=== PATIENT | female | born 1960 | race Hispanic/Latino ===

== ENCOUNTER 2016-04-17 11:50 | Outpatient (CLI) | payer MEDICARE ==
--- NOTE | 2016-04-17 13:26 | XRay Report ---
LUMBAR SPINE RADIOGRAPHS: INDICATION: Low back pain. COMPARISON: None similar at this institution. FINDINGS: AP, oblique and lateral lumbar spine radiographs, 7 images, demonstrate slight levocurvature apex about L3. Multilevel degenerative spurring, least affecting L3. Mid to lower lumbar facet arthropathy. No evidence of a pars defect. Grossly preserved disc heights. Aortic atherosclerotic calcifications. Clear visualized lung bases. Nonobstructive bowel gas pattern. Intact SI joints. CONCLUSION: Lumbar spondylosis without acute radiographic abnormality, as described. Please correlate. Thank you for the opportunity to participate in this patient's care.
== END 2016-04-17 11:51 | disposition home or self-care (01) ==
LOC: XRAY 11:50
PROVIDERS: ATTEND Pain Medicine Interventional Pain Medicine
DX: M47.896 Other spondylosis, lumbar region (principal); I70.0 Atherosclerosis of aorta; M12.88 Other specific arthropathies, not elsewhere classified, other specified site
CPT/HCPCS: 72110

== ENCOUNTER 2017-12-02 14:53 | Emergency (ER) | payer MEDICARE ==
[2017-12-02 15:08] VITALS: BP 164/80
--- NOTE | 2017-12-02 17:15 | Emergency Department Report ---
HPI - General Chief Complaint: Extremity Injury, Lower Time Seen by Provider: 12/02/17 17:01 - HPI HPI: 57-year-old female presents to the emergency department with complaint of bilateral leg pain that is acute on chronic. The patient has a history of arthritis, fibromyalgia and says that she is getting surgery done on December 19 by [facility] for a vein in the back of her right leg. She is requesting a refill of her pain medication as she ran out a few days ago. She gets tramadol 50 mg from her primary care physician, Yasmani Boucher, as well as her orthopedist, Dr. Jang. Patient also has a history of COPD, diabetes, hyperlipidemia, hypertension, hepatitis B and has had a previous history of vascular occlusions. ED Past Medical Hx - Past Medical History Hx Hypertension: Yes Hx Heart Attack/AMI: (increased cholesterol) Hx Diabetes: Yes Hx Liver Disease: Yes (Hep B; Increased LFTs) Hx Renal Disease: No Hx Arthritis: Yes Hx Seizures: No Hx COPD: Yes Hx HIV: No Additional medical history: high chol,fibromyalgia,carpel tunnel,vascular occlusions BLL - Surgical History Past Surgical History?: No - Social History Smoking Status: Current Every Day Smoker Substance Use Type: None - Medications Home Medications: Home Medications Medication Instructions Recorded Confirmed Last Taken Type Gabapentin [Neurontin] 400 mg PO TID 08/24/13 06/04/14 05/31/14 History Lisinopril [Zestril] 1 tab PO DAILY 08/24/13 06/04/14 05/31/14 History Albuterol Sulfate [Albuterol 0.63% 3 ml INHALATION PRN PRN 05/26/14 06/04/14 Unknown History NEBS] Cyclobenzaprine [Flexeril 10 MG 5 mg PO TID 05/26/14 06/04/14 05/31/14 History TAB] Insulin Detemir [Levemir Flextouch] 64 units SC QHS 05/26/14 06/04/14 05/31/14 History Insulin Lispro [HumaLOG VIAL] 20 units SC TID 05/26/14 06/04/14 05/31/14 History Lisinopril 40 mg PO DAILY 05/26/14 06/04/14 Unknown History Lovastatin [Altoprev] 1 tab PO DAILY 05/26/14 06/04/14 Unknown History Ranitidine HCl [Zantac 75 MG TAB] 300 mg PO DAILY 05/26/14 06/04/14 05/31/14 History traMADol [Ultram 50 MG tab] 1 tab PO TID #9 tablet 12/02/17 Unknown Rx ED Review of Systems ROS: Stated complaint: PAIN IN LEGS Other details as noted in HPI Comment: All other systems reviewed and negative Constitutional: denies: chills, fever Eyes: denies: eye pain, eye discharge, vision change ENT: denies: ear pain, throat pain Respiratory: denies: cough, shortness of breath, wheezing Cardiovascular: denies: chest pain, palpitations Gastrointestinal: denies: abdominal pain, nausea, diarrhea Genitourinary: denies: urgency, dysuria, discharge Musculoskeletal: arthralgia, myalgia Skin: denies: rash, lesions Neurological: denies: headache, weakness, paresthesias Physical Exam - Physical Exam Vital Signs: Vital Signs 12/02/17 15:04 Temperature 98.9 F Pulse Rate 102 H Respiratory 18 Rate Blood Pressure 164/80 O2 Sat by Pulse 96 Oximetry Physical Exam: GENERAL: The patient is well-developed well-nourished. HENT: Normocephalic. Atraumatic. Patient has moist mucous membranes. EYES: Extraocular motions are intact. NECK: Supple. Trachea is midline. CHEST/LUNGS: Clear to auscultation. There is no respiratory distress noted. HEART/CARDIOVASCULAR: Regular. There is no tachycardia. There is no murmur. ABDOMEN: Abdomen is soft, nontender. Patient has normal bowel sounds. There is no abdominal distention. SKIN: Skin is warm and dry. NEURO: The patient is awake, alert, and oriented. The patient is cooperative. The patient has no focal neurologic deficits. The patient has normal speech. MUSCULOSKELETAL: There is no tenderness to palpation of the extremities but the patient has some aching discomforts. There is a palpable dorsalis pedis pulse bilaterally. Capillary refill less than 2 seconds. There is no limitation range of motion. ED Course Vital Signs 12/02/17 15:04 Temperature 98.9 F Pulse Rate 102 H Respiratory 18 Rate Blood Pressure 164/80 O2 Sat by Pulse 96 Oximetry ED Medical Decision Making - Medical Decision Making The patient presents requesting some pain medication for some chronic bilateral lower extremity pain. She also has a history of fibromyalgia, osteoarthritis but has some type of vascular surgery scheduled for December 19 with [facility]. The patient has palpable distal pulses, capillary refill less than 3 seconds. She says that it is the same type of pain that she deals with chronically but she ran out of her pain medications. She was unable to contact any of her physicians as it has been the weekend. Patient says that she is planning on talking to Dr. Yasmani Boucher tomorrow regarding her pain control and that she is scheduled and/or will be referred for a lead painter. The patient is also been instructed to follow up with her vascular surgeon. Vital signs stable throughout her ED course. The patient checks her blood sugar and says that it has been controlled. She is afebrile. The [employer] prescription monitoring system was checked and the patient does have a history of feeling tramadol just about every month but has not filled any in November. The patient was given a maximum of a 3 day supply and instructed to follow-up with her physicians. She will return to the ER with any worsening of her symptoms or any acute distress. Critical Care Time: No Critical care attestation.: If time is entered above; I have spent that time in minutes in the direct care of this critically ill patient, excluding procedure time. ED Disposition Clinical Impression: Encounter for medication refill Chronic leg pain Qualifiers: Laterality: bilateral Qualified Code(s): M79.604 - Pain in right leg Hypertension Qualifiers: Hypertension type: essential hypertension Qualified Code(s): I10 - Essential ( primary) hypertension Disposition: TO HOME OR SELFCARE Is pt being admited?: No Condition: Stable Instructions: Hypertension (ED) Additional Instructions: I have given you a small refill of your pain medication until you're able to get an appointment with your primary care physician and your vascular physician in the next 1-2 days without fail. Return to the emergency Department with any worsening of your symptoms or with any acute distress. Prescriptions: traMADol [Ultram 50 MG tab] 1 tab PO TID #9 tablet Referrals: YASMANI BOUCHER III, ROCIO-BC [Referring] - [facility] [employer] [facility] [Provider Group] - [facility] Time of Disposition: 17:23
== END 2017-12-02 17:34 | disposition home or self-care (01) ==
LOC: ED 14:53
DX: G89.29 Other chronic pain (principal); M79.604 Pain in right leg; M79.605 Pain in left leg; Z76.0 Encounter for issue of repeat prescription; I10 Essential (primary) hypertension; M19.90 Unspecified osteoarthritis, unspecified site; J44.9 Chronic obstructive pulmonary disease, unspecified; F17.200 Nicotine dependence, unspecified, uncomplicated; E78.00 Pure hypercholesterolemia, unspecified; E11.9 Type 2 diabetes mellitus without complications
CPT/HCPCS: 99282

== ENCOUNTER 2017-12-08 21:39 | Emergency (ER) | payer MEDICARE ==
[2017-12-09] MEDS ORDERED: KETAMINE HCL IV ONE (00:19)
--- NOTE | 2017-12-09 00:19 | Emergency Department Report ---
ED General Adult HPI - General Chief complaint: Pain General Stated complaint: BODY PAIN Time Seen by Provider: 12/09/17 00:03 Source: patient, RN notes reviewed, old records reviewed Mode of arrival: Ambulatory Limitations: No Limitations - History of Present Illness Initial comments: This is a 57-year-old female who is not known to this provider previously, with a past medical history of fibromyalgia, hypertension, high cholesterol and neuropathic pain. Patient reports that she had an outpatient pain specialist, who had dismissed the patient. She is currently looking for a new pain specialist. She presents to the ER with her complaint of typical fibromyalgia pain in her bilateral paracervical muscles and trapezius, and right lower extremity neuropathic pain. This pain is going on for the past 4 days. It is sharp, burning, achy, the right lower extremity pain radiates distally, the trapezius pain and neck pain did not radiate anywhere. She denies bladder or bowel retention and incontinence, saddle anesthesia. She denies severe headache , chest pain, abdominal pain, shortness of breath. -: Gradual Location: neck, back, right, lower extremity Radiation: extremity Quality: burning Consistency: other Improves with: other Worsens with: other Associated Symptoms: denies: confusion, chest pain, cough, diaphoresis, fever/ chills, headaches, loss of appetite, malaise, nausea/vomiting, rash, seizure, shortness of breath, syncope, weakness - Related Data Home Medications Medication Instructions Recorded Confirmed Last Taken Gabapentin [Neurontin] 400 mg PO TID 08/24/13 06/04/14 05/31/14 Lisinopril [Zestril] 1 tab PO DAILY 08/24/13 06/04/14 05/31/14 Albuterol Sulfate [Albuterol 0.63% 3 ml INHALATION PRN PRN 05/26/14 06/04/14 Unknown NEBS] Cyclobenzaprine [Flexeril 10 MG 5 mg PO TID 05/26/14 06/04/14 05/31/14 TAB] Insulin Detemir [Levemir Flextouch] 64 units SC QHS 05/26/14 06/04/14 05/31/14 Insulin Lispro [HumaLOG VIAL] 20 units SC TID 05/26/14 06/04/14 05/31/14 Lisinopril 40 mg PO DAILY 05/26/14 06/04/14 Unknown Lovastatin [Altoprev] 1 tab PO DAILY 05/26/14 06/04/14 Unknown Ranitidine HCl [Zantac 75 MG TAB] 300 mg PO DAILY 05/26/14 06/04/14 05/31/14 Previous Rx's Medication Instructions Recorded Last Taken Type traMADol [Ultram 50 MG tab] 1 tab PO TID #9 tablet 12/02/17 Unknown Rx Lidocaine [Lidoderm] 1 each TP QDAY #5 adh..patch 12/09/17 Unknown Rx traMADol [Ultram 50 MG tab] 50 mg PO Q6HR PRN #10 tablet 12/09/17 Unknown Rx Allergies Allergy/AdvReac Type Severity Reaction Status Date / Time No Known Allergies Allergy Unverified 08/24/13 12:47 ED Review of Systems ROS: Stated complaint: BODY PAIN Other details as noted in HPI Constitutional: denies: fever Respiratory: denies: cough, SOB with exertion Cardiovascular: denies: chest pain Gastrointestinal: denies: abdominal pain, vomiting Genitourinary: denies: urgency, dysuria Musculoskeletal: back pain, arthralgia, myalgia Skin: denies: lesions Neurological: denies: weakness, numbness ED Past Medical Hx - Past Medical History Hx Hypertension: Yes Hx Heart Attack/AMI: (increased cholesterol) Hx Diabetes: Yes Hx Liver Disease: Yes (Hep B; Increased LFTs) Hx Renal Disease: No Hx Arthritis: Yes Hx Seizures: No Hx COPD: Yes Hx HIV: No Additional medical history: high chol,fibromyalgia,carpel tunnel,vascular occlusions BLL, Neuropathy - Surgical History Past Surgical History?: No - Social History Smoking Status: Current Every Day Smoker Substance Use Type: None - Medications Home Medications: Home Medications Medication Instructions Recorded Confirmed Last Taken Type Gabapentin [Neurontin] 400 mg PO TID 08/24/13 06/04/14 05/31/14 History Lisinopril [Zestril] 1 tab PO DAILY 08/24/13 06/04/14 05/31/14 History Albuterol Sulfate [Albuterol 0.63% 3 ml INHALATION PRN PRN 05/26/14 06/04/14 Unknown History NEBS] Cyclobenzaprine [Flexeril 10 MG 5 mg PO TID 05/26/14 06/04/14 05/31/14 History TAB] Insulin Detemir [Levemir Flextouch] 64 units SC QHS 05/26/14 06/04/14 05/31/14 History Insulin Lispro [HumaLOG VIAL] 20 units SC TID 05/26/14 06/04/14 05/31/14 History Lisinopril 40 mg PO DAILY 05/26/14 06/04/14 Unknown History Lovastatin [Altoprev] 1 tab PO DAILY 05/26/14 06/04/14 Unknown History Ranitidine HCl [Zantac 75 MG TAB] 300 mg PO DAILY 05/26/14 06/04/14 05/31/14 History traMADol [Ultram 50 MG tab] 1 tab PO TID #9 tablet 12/02/17 Unknown Rx Lidocaine [Lidoderm] 1 each TP QDAY #5 adh..patch 12/09/17 Unknown Rx traMADol [Ultram 50 MG tab] 50 mg PO Q6HR PRN #10 tablet 12/09/17 Unknown Rx ED Physical Exam - General Limitations: No Limitations General appearance: alert, in no apparent distress, obese - Head Head exam: Present: atraumatic, normocephalic - Eye Eye exam: Present: normal appearance, EOMI. Absent: nystagmus - ENT ENT exam: Present: normal exam, normal orophraynx, mucous membranes moist, normal external ear exam - Neck Neck exam: Present: normal inspection, full ROM, other (there is no midline cervical spine tenderness. There is no redness, pus or streaking. There is reproducible trapezius tenderness.). Absent: tenderness, meningismus - Respiratory Respiratory exam: Present: normal lung sounds bilaterally. Absent: respiratory distress - Cardiovascular Cardiovascular Exam: Present: regular rate, normal rhythm, normal heart sounds. Absent: bradycardia, tachycardia, irregular rhythm, systolic murmur, diastolic murmur, rubs, gallop - GI/Abdominal GI/Abdominal exam: Present: soft, normal bowel sounds. Absent: distended, tenderness, guarding, rebound, rigid, pulsatile mass - Extremities Exam Extremities exam: Present: normal inspection (chronic venous stasis hyperpigmentation noted in the lower extremities), full ROM, other (2+ pulses noted in the bilateral upper, lower extremities. Compartments soft. No long bony tenderness. The pelvis is stable.). Absent: tenderness, pedal edema, joint swelling, calf tenderness - Back Exam Back exam: Present: normal inspection, full ROM, paraspinal tenderness. Absent : tenderness, CVA tenderness (R), vertebral tenderness - Neurological Exam Neurological exam: Present: alert, oriented X3, CN II-XII intact, normal gait, other (Extraocular movements intact. Tongue midline. No facial droop. Facial sensation intact to light touch in the V1, V2, V3 distribution bilaterally. 5 and 5 strength in 4 extremities.. Sensation is intact to light touch in 4 extremities.). Absent: motor sensory deficit - Psychiatric Psychiatric exam: Present: normal affect, normal mood - Skin Skin exam: Present: warm, dry, intact, normal color. Absent: rash ED Course Vital Signs 12/08/17 12/08/17 12/09/17 22:56 23:24 00:28 Temperature 98.9 F 98.9 F Pulse Rate 80 80 Respiratory 16 20 12 Rate Blood Pressure 186/76 177/79 O2 Sat by Pulse 97 97 Oximetry 12/09/17 00:31 Temperature Pulse Rate 79 Respiratory 20 Rate Blood Pressure 175/74 O2 Sat by Pulse 98 Oximetry ED Medical Decision Making - Lab Data Vital Signs 12/08/17 12/08/17 12/09/17 22:56 23:24 00:28 Temperature 98.9 F 98.9 F Pulse Rate 80 80 Respiratory 16 20 12 Rate Blood Pressure 186/76 177/79 O2 Sat by Pulse 97 97 Oximetry 12/09/17 00:31 Temperature Pulse Rate 79 Respiratory 20 Rate Blood Pressure 175/74 O2 Sat by Pulse 98 Oximetry - Medical Decision Making Differential diagnosis, including not limited to: Neuropathic pain, fibromyalgia pain, medication refill Assessment and plan: 57-year-old female with acute on chronic pain syndrome. Patient is afebrile with reassuring vital signs with the exception of elevated blood pressure. This is not acutely symptomatic; please reference the [employer] clinical policy on elevated blood pressure/ hypertension. Patient is given ketamine, 0.3 mg/kg IV as a single pain dose for breakthrough neuropathic and fibromyalgia pain. This improved her symptoms. Patient reported that she has been on 20 years of tramadol. I will refill a small quantity of patient's tramadol, but patient was informed about risk of possible breakthrough seizure. Patient will also be given a Lidoderm patch prescription. There does not appear to be an emergent medical condition at this time, the patient is medically suitable to follow up with outpatient primary care doctor or pain specialist. Critical care attestation.: If time is entered above; I have spent that time in minutes in the direct care of this critically ill patient, excluding procedure time. ED Disposition Clinical Impression: Chronic leg pain, Encounter for medication refill Disposition: TO HOME OR SELFCARE Is pt being admited?: No Does the pt Need Aspirin: No Condition: Stable Additional Instructions: Take medications as directed. Follow-up with a primary care doctor or pain specialist within the next month. Please note that blood pressure was elevated. This should be followed by a primary care doctor within the recommended timeframe. Long-term complications of hypertension and elevated blood pressure include stroke, heart attack disability, paralysis, loss of quality of life. Return to the ER right away with new pain, worsened pain, migration of pain, projectile vomiting, change in mental status, confusion, inability to tolerate liquid feedings. Prescriptions: Lidocaine [Lidoderm] 1 each TP QDAY #5 adh..patch traMADol [Ultram 50 MG tab] 50 mg PO Q6HR PRN #10 tablet PRN Reason: Pain Referrals: PRIMARY MD BRANDY [Primary Care Provider] - 3-5 Days LOUISE SALVADOR MD [Staff Physician] - 3-5 Days [facility] [Provider Group] - 3-5 Days
[2017-12-09 00:38] VITALS: BP 175/74
== END 2017-12-09 01:13 | disposition home or self-care (01) ==
LOC: ED 21:39
DX: M79.7 Fibromyalgia (principal); Z76.0 Encounter for issue of repeat prescription; I10 Essential (primary) hypertension; E78.00 Pure hypercholesterolemia, unspecified; E11.40 Type 2 diabetes mellitus with diabetic neuropathy, unspecified; F17.200 Nicotine dependence, unspecified, uncomplicated; Z79.4 Long term (current) use of insulin; Z86.19 Personal history of other infectious and parasitic diseases
CPT/HCPCS: 99283

== ENCOUNTER 2017-12-16 18:39 | Emergency (ER) | payer MEDICARE ==
[2017-12-16 18:59] VITALS: BP 148/58
[2017-12-16] MEDS ORDERED: ULTRAM PO ONE (23:18)
--- NOTE | 2017-12-16 23:25 | Emergency Department Report ---
ED Lower Extremity HPI - General Chief Complaint: Extremity Problem,Nontraumatic Stated Complaint: LEG PAIN Time Seen by Provider: 12/16/17 22:57 Source: patient Mode of arrival: Ambulatory Limitations: No Limitations - History of Present Illness Initial Comments: pt is a 57 y/o w/f with hx of peripheral neuropathy and PVD scheduled for Fempop in 4 days states is out of neurontin and pain medication rx for leg pt denies new fall injury or trauma no selling no defomity no sob no calf tendereness pt out of medication since 4 days Complaint: leg injury Onset/Timin -: days(s) Injury: Leg: Right Type of Injury: other Place: home Severity: moderate Severity scale (0 -10): 4 Improves With: NSAID Worsens With: nothing Context: other (pvd ) Associated Symptoms: ambulatory. denies: snap/pop sensation, swelling, numbness , tingling, unable to bear weight, able to partially bear weight - Related Data Home Medications Medication Instructions Recorded Confirmed Last Taken Gabapentin [Neurontin] 400 mg PO TID 08/24/13 06/04/14 05/31/14 Lisinopril [Zestril] 1 tab PO DAILY 08/24/13 06/04/14 05/31/14 Albuterol Sulfate [Albuterol 0.63% 3 ml INHALATION PRN PRN 05/26/14 06/04/14 Unknown NEBS] Cyclobenzaprine [Flexeril 10 MG 5 mg PO TID 05/26/14 06/04/14 05/31/14 TAB] Insulin Detemir [Levemir Flextouch] 64 units SC QHS 05/26/14 06/04/14 05/31/14 Insulin Lispro [HumaLOG VIAL] 20 units SC TID 05/26/14 06/04/14 05/31/14 Lisinopril 40 mg PO DAILY 05/26/14 06/04/14 Unknown Lovastatin [Altoprev] 1 tab PO DAILY 05/26/14 06/04/14 Unknown Ranitidine HCl [Zantac 75 MG TAB] 300 mg PO DAILY 05/26/14 06/04/14 05/31/14 Previous Rx's Medication Instructions Recorded Last Taken Type traMADol [Ultram 50 MG tab] 1 tab PO TID #9 tablet 12/02/17 Unknown Rx Lidocaine [Lidoderm] 1 each TP QDAY #5 adh..patch 12/09/17 Unknown Rx traMADol [Ultram 50 MG tab] 50 mg PO Q6HR PRN #10 tablet 12/09/17 Unknown Rx Gabapentin [Neurontin] 600 mg PO Q8H #90 tablet 12/16/17 Unknown Rx traMADol [Ultram 50 MG tab] 50 mg PO Q6HR PRN #12 tablet 12/16/17 Unknown Rx Allergies Allergy/AdvReac Type Severity Reaction Status Date / Time No Known Allergies Allergy Unverified 08/24/13 12:47 ED Review of Systems ROS: Stated complaint: LEG PAIN Other details as noted in HPI Constitutional: denies: chills, fever Eyes: denies: eye pain, eye discharge, vision change ENT: denies: ear pain, throat pain Respiratory: denies: cough, shortness of breath, wheezing Cardiovascular: denies: chest pain, palpitations Endocrine: no symptoms reported Gastrointestinal: denies: abdominal pain, nausea, diarrhea Genitourinary: denies: urgency, dysuria, discharge Musculoskeletal: arthralgia, myalgia Skin: denies: rash, lesions Neurological: denies: headache, weakness, paresthesias Psychiatric: denies: anxiety, depression Hematological/Lymphatic: denies: easy bleeding, easy bruising ED Past Medical Hx - Past Medical History Hx Hypertension: Yes Hx Heart Attack/AMI: (increased cholesterol) Hx Diabetes: Yes Hx Liver Disease: Yes (Hep B; Increased LFTs) Hx Renal Disease: No Hx Arthritis: Yes Hx Seizures: No Hx COPD: Yes Hx HIV: No Additional medical history: high chol,fibromyalgia,carpel tunnel,vascular occlusions BLL, Neuropathy - Surgical History Hx Appendectomy: No - Social History Smoking Status: Never Smoker Substance Use Type: Alcohol - Medications Home Medications: Home Medications Medication Instructions Recorded Confirmed Last Taken Type Gabapentin [Neurontin] 400 mg PO TID 08/24/13 06/04/14 05/31/14 History Lisinopril [Zestril] 1 tab PO DAILY 08/24/13 06/04/14 05/31/14 History Albuterol Sulfate [Albuterol 0.63% 3 ml INHALATION PRN PRN 05/26/14 06/04/14 Unknown History NEBS] Cyclobenzaprine [Flexeril 10 MG 5 mg PO TID 05/26/14 06/04/14 05/31/14 History TAB] Insulin Detemir [Levemir Flextouch] 64 units SC QHS 05/26/14 06/04/14 05/31/14 History Insulin Lispro [HumaLOG VIAL] 20 units SC TID 05/26/14 06/04/14 05/31/14 History Lisinopril 40 mg PO DAILY 05/26/14 06/04/14 Unknown History Lovastatin [Altoprev] 1 tab PO DAILY 05/26/14 06/04/14 Unknown History Ranitidine HCl [Zantac 75 MG TAB] 300 mg PO DAILY 05/26/14 06/04/14 05/31/14 History traMADol [Ultram 50 MG tab] 1 tab PO TID #9 tablet 12/02/17 Unknown Rx Lidocaine [Lidoderm] 1 each TP QDAY #5 adh..patch 12/09/17 Unknown Rx traMADol [Ultram 50 MG tab] 50 mg PO Q6HR PRN #10 tablet 12/09/17 Unknown Rx Gabapentin [Neurontin] 600 mg PO Q8H #90 tablet 12/16/17 Unknown Rx traMADol [Ultram 50 MG tab] 50 mg PO Q6HR PRN #12 tablet 12/16/17 Unknown Rx ED Physical Exam - General Limitations: No Limitations General appearance: alert, in no apparent distress - Head Head exam: Present: atraumatic, normocephalic - Eye Eye exam: Present: normal appearance - ENT ENT exam: Present: mucous membranes moist - Neck Neck exam: Present: normal inspection - Respiratory Respiratory exam: Present: normal lung sounds bilaterally. Absent: respiratory distress - Cardiovascular Cardiovascular Exam: Present: regular rate, normal rhythm. Absent: systolic murmur, diastolic murmur, rubs, gallop - GI/Abdominal GI/Abdominal exam: Present: soft, normal bowel sounds - Rectal Rectal exam: Present: deferred - Extremities Exam Extremities exam: Present: tenderness, normal capillary refill. Absent: pedal edema, joint swelling, calf tenderness - Expanded Lower Extremity Exam Left Lower Leg exam: Present: tenderness (veicose vein no calf tenderness , neg homans sign no pain with dorsoflexion ). Absent: swelling, abrasion, laceration , ecchymosis, deformity, crepidus, dislocation, erythema, palpable cord, Mayte' s sign Ankle exam: Present: normal inspection, full ROM Foot/Toe exam: Present: normal inspection, full ROM Neuro vascular tendon exam: Present: no vascular compromise, pulse deficit Gait: Positive: observed and normal - Back Exam Back exam: Present: normal inspection - Neurological Exam Neurological exam: Present: alert, oriented X3 - Psychiatric Psychiatric exam: Present: normal affect - Skin Skin exam: Present: warm, dry, intact, normal color. Absent: rash ED Course Vital Signs 12/16/17 18:54 Temperature 97.8 F Pulse Rate 83 Respiratory 20 Rate Blood Pressure 148/58 O2 Sat by Pulse 96 Oximetry ED Lower Extremity MDM - Medical Decision Making no rx noted to [place] [facility] plan: tramdol , neurontin follow up with [facility] as scheduled on thursda, tramdol, neurontin as scheduled for pain pt verbalized agreement and understanding of discharge plan. Critical care attestation.: If time is entered above; I have spent that time in minutes in the direct care of this critically ill patient, excluding procedure time. ED Disposition Clinical Impression: Lower extremity pain Qualifiers: Laterality: right Qualified Code(s): M79.604 - Pain in right leg Disposition: DC-01 TO HOME OR SELFCARE Is pt being admited?: No Does the pt Need Aspirin: No Condition: Good Instructions: Arthralgia (ED), Peripheral Vascular Disorders (ED) Prescriptions: Gabapentin [Neurontin] 600 mg PO Q8H #90 tablet traMADol [Ultram 50 MG tab] 50 mg PO Q6HR PRN #12 tablet PRN Reason: Pain Referrals: PRIMARY CARE,MD [Primary Care Provider] - 3-5 Days Forms: Work/School Release Form(ED) Time of Disposition: 23:33
== END 2017-12-16 23:41 | disposition home or self-care (01) ==
LOC: ED 18:39
DX: M79.604 Pain in right leg (principal); I10 Essential (primary) hypertension; I25.2 Old myocardial infarction; M19.90 Unspecified osteoarthritis, unspecified site; J44.9 Chronic obstructive pulmonary disease, unspecified; E11.42 Type 2 diabetes mellitus with diabetic polyneuropathy; Z79.4 Long term (current) use of insulin
CPT/HCPCS: 99282

== ENCOUNTER 2018-03-13 09:47 | Emergency (ER) | payer MEDICARE ==
--- NOTE | 2018-03-13 10:36 | Emergency Department Report ---
ED Recheck HPI - General Chief Complaint: Extremity Problem,Nontraumatic Stated Complaint: FOOT/LEG PAIN Time Seen by Provider: 03/13/18 10:24 Source: patient Mode of arrival: Ambulatory Limitations: No Limitations - History of Present Illness Initial Comments: This is a 57-year-old female that is known to me nontoxic, well nourished in appearance, no acute signs of distress presents to the ED with c/o of pain in his request for medication refill. She states she currently had toe amputation that occurred 02/21/[address] Robert Tan. Patient stated that her primary care doctor is currently out of town and treat her pain with tramadol. Patient as she does not have any medication. Patient denies any other complaints. Patient does have a nurse that comes to her for a antibiotic therapy. Patient denies any fevers, chills, nausea, vomiting, chest pain, shortness of breath, headache, stiff neck, numbness or tingling. Denies any pus or drainage or cellulitis. Denies any allergies. Patient was seen by me during last visit and stated has a pain specialist follow-up. Upon evaluation today patient stated that she did not follow with a pain specialist. MD Complaint: medication refill request Returns Today for: request for prescription Symptoms Since Prior Visit: no new symptoms, improved Associated Symptoms: none. denies: fever, chills, chest pain, shortness of breath, rash, malaise, nasuea, abdominal pain - Related Data Home Medications Medication Instructions Recorded Confirmed Last Taken Gabapentin [Neurontin] 400 mg PO TID 08/24/13 02/17/18 05/31/14 Lisinopril [Zestril] 1 tab PO DAILY 08/24/13 02/17/18 05/31/14 Albuterol Sulfate [Albuterol 0.63% 3 ml INHALATION PRN PRN 05/26/14 02/17/18 Unknown NEBS] Cyclobenzaprine [Flexeril 10 MG 5 mg PO TID 05/26/14 02/17/18 05/31/14 TAB] Insulin Detemir [Levemir Flextouch] 64 units SC QHS 05/26/14 02/17/18 05/31/14 Insulin Lispro [HumaLOG VIAL] 20 units SC TID 05/26/14 02/17/18 05/31/14 Lisinopril 40 mg PO DAILY 05/26/14 02/17/18 Unknown Lovastatin [Altoprev] 1 tab PO DAILY 05/26/14 02/17/18 Unknown Ranitidine HCl [Zantac 75 MG TAB] 300 mg PO DAILY 05/26/14 02/17/18 05/31/14 Previous Rx's Medication Instructions Recorded Last Taken Type Lidocaine [Lidoderm] 1 each TP QDAY #5 adh..patch 12/09/17 Unknown Rx Gabapentin [Neurontin] 600 mg PO Q8H #90 tablet 12/16/17 Unknown Rx Acetaminophen [Acetaminophen TAB] 650 mg PO Q4H PRN #15 tablet 02/21/18 Unknown Rx Ertapenem (Nf) [INVanz] 1 gm IV Q24HR #1 vial 02/21/18 Unknown Rx Famotidine [Pepcid] 40 mg PO QDAY #15 tablet 02/21/18 Unknown Rx Loratadine [Claritin] 10 mg PO QDAY #30 tablet 02/21/18 Unknown Rx Nicotine [Habitrol] 21 mg TD QDAY #14 patch 02/21/18 Unknown Rx traMADol [Ultram 50 MG tab] 50 mg PO Q6HR PRN #12 tablet 03/07/18 Unknown Rx Ibuprofen [Motrin] 600 mg PO Q8H PRN #20 tablet 03/13/18 Unknown Rx Allergies Allergy/AdvReac Type Severity Reaction Status Date / Time No Known Allergies Allergy Unverified 08/24/13 12:47 ED Review of Systems ROS: Stated complaint: FOOT/LEG PAIN Other details as noted in HPI Constitutional: denies: chills, fever Eyes: denies: eye pain, eye discharge, vision change ENT: denies: ear pain, throat pain Respiratory: denies: cough, shortness of breath, wheezing Cardiovascular: denies: chest pain, palpitations Endocrine: no symptoms reported Gastrointestinal: denies: abdominal pain, nausea, diarrhea Genitourinary: denies: urgency, dysuria, discharge Musculoskeletal: denies: back pain, joint swelling, arthralgia Skin: denies: rash, lesions Neurological: denies: headache, weakness, paresthesias Psychiatric: denies: anxiety, depression Hematological/Lymphatic: denies: easy bleeding, easy bruising ED Past Medical Hx - Past Medical History Hx Hypertension: Yes Hx Heart Attack/AMI: (increased cholesterol) Hx Congestive Heart Failure: No Hx Diabetes: Yes Hx Liver Disease: Yes (Hep B; Increased LFTs) Hx Renal Disease: No Hx Arthritis: Yes Hx Seizures: No Hx Asthma: No Hx COPD: Yes Hx HIV: No Additional medical history: high chol,fibromyalgia,carpel tunnel,vascular occlusions BLL, Neuropathy - Surgical History Hx Appendectomy: No Additional Surgical History: sx R leg, stent placed in R leg-done at [facility] History Smoking Status: Current Every Day Smoker Substance Use Type: None - Medications Home Medications: Home Medications Medication Instructions Recorded Confirmed Last Taken Type Gabapentin [Neurontin] 400 mg PO TID 08/24/13 02/17/18 05/31/14 History Lisinopril [Zestril] 1 tab PO DAILY 08/24/13 02/17/18 05/31/14 History Albuterol Sulfate [Albuterol 0.63% 3 ml INHALATION PRN PRN 05/26/14 02/17/18 Unknown History NEBS] Cyclobenzaprine [Flexeril 10 MG 5 mg PO TID 05/26/14 02/17/18 05/31/14 History TAB] Insulin Detemir [Levemir Flextouch] 64 units SC QHS 05/26/14 02/17/18 05/31/14 History Insulin Lispro [HumaLOG VIAL] 20 units SC TID 05/26/14 02/17/18 05/31/14 History Lisinopril 40 mg PO DAILY 05/26/14 02/17/18 Unknown History Lovastatin [Altoprev] 1 tab PO DAILY 05/26/14 02/17/18 Unknown History Ranitidine HCl [Zantac 75 MG TAB] 300 mg PO DAILY 05/26/14 02/17/18 05/31/14 History Lidocaine [Lidoderm] 1 each TP QDAY #5 adh..patch 12/09/17 02/17/18 Unknown Rx Gabapentin [Neurontin] 600 mg PO Q8H #90 tablet 12/16/17 02/17/18 Unknown Rx Acetaminophen [Acetaminophen TAB] 650 mg PO Q4H PRN #15 tablet 02/21/18 Unknown Rx Ertapenem (Nf) [INVanz] 1 gm IV Q24HR #1 vial 02/21/18 Unknown Rx Famotidine [Pepcid] 40 mg PO QDAY #15 tablet 02/21/18 Unknown Rx Loratadine [Claritin] 10 mg PO QDAY #30 tablet 02/21/18 Unknown Rx Nicotine [Habitrol] 21 mg TD QDAY #14 patch 02/21/18 Unknown Rx traMADol [Ultram 50 MG tab] 50 mg PO Q6HR PRN #12 tablet 03/07/18 Unknown Rx Ibuprofen [Motrin] 600 mg PO Q8H PRN #20 tablet 03/13/18 Unknown Rx ED Physical Exam - General Limitations: No Limitations General appearance: alert, in no apparent distress - Head Head exam: Present: atraumatic, normocephalic - Eye Eye exam: Present: normal appearance - Neck Neck exam: Present: normal inspection, full ROM - Extremities Exam Extremities exam: Present: normal inspection, full ROM, normal capillary refill, other (wound dressing with VAC to the right foot). Absent: tenderness - Back Exam Back exam: Present: normal inspection, full ROM - Neurological Exam Neurological exam: Present: alert, oriented X3 - Psychiatric Psychiatric exam: Present: normal affect, normal mood - Skin Skin exam: Present: warm, dry, intact, normal color. Absent: rash ED Course Vital Signs 03/13/18 10:07 Temperature 97.8 F Pulse Rate 82 Respiratory 18 Rate Blood Pressure 150/70 O2 Sat by Pulse 98 Oximetry - Reevaluation(s) Reevaluation #1: 03/13/18 10:37 Patient is speaking in full sentences with no signs of distress noted. ED Recheck MDM - Medical Decision Making This is a 57-year-old female that presents with medication refill. Patient is stable and was examined by me. [facility] database has been ran and it does indicated the patient does take tramadol constantly for pain with last dose was 03/07/2018 for 3 days. During my last encounter with the patient and did educate her about pain specialist to follow-up patient did not. I concerned the patient may be developing a dependency on trauma call so I will discharge patient with Motrin for this reason. Patient was referred to Follow-up with a primary care doctor in 3-5 days or if symptoms worsen and continue return to emergency room as soon as possible. At time of discharge, the patient does not seem toxic or ill in appearance. No acute signs of distress noted. Patient agrees to discharge treatment plan of care. No further questions noted by the patient. Critical care attestation.: If time is entered above; I have spent that time in minutes in the direct care of this critically ill patient, excluding procedure time. ED Disposition Clinical Impression: Medication refill Disposition: TO HOME OR SELFCARE Is pt being admited?: No Does the pt Need Aspirin: No Condition: Stable Additional Instructions: Follow-up with a primary care doctor in 3-5 days or if symptoms worsen and continue return to emergency room as soon as possible. Prescriptions: Ibuprofen [Motrin] 600 mg PO Q8H PRN #20 tablet PRN Reason: Pain Referrals: PRIMARY CAREMD [Primary Care Provider] - 3-5 Days ABBY CONDON MD [Staff Physician] - 3-5 Days [facility] [Outside] - 3-5 Days [facility] [Outside] - 3-5 Days
== END 2018-03-13 10:46 | disposition home or self-care (01) ==
LOC: ED 09:47
CPT/HCPCS: 99281

== ENCOUNTER 2018-03-20 08:20 | Outpatient (CLI) | payer MEDICARE ==
[2018-03-20] MEDS ORDERED: XYLOCAINE TOPICAL 4% TP ONE (08:26)
[2018-03-20] MEDS ORDERED: SILVER NITRATE TP ONE (08:45)
== END 2018-03-20 08:21 | disposition home or self-care (01) ==
LOC: WOUND 08:20
PROVIDERS: ATTEND Surgery
DX: E11.621 Type 2 diabetes mellitus with foot ulcer (principal); L97.513 Non-pressure chronic ulcer of other part of right foot with necrosis of muscle; E11.69 Type 2 diabetes mellitus with other specified complication; M86.8X7 Other osteomyelitis, ankle and foot; E11.51 Type 2 diabetes mellitus with diabetic peripheral angiopathy without gangrene; E11.40 Type 2 diabetes mellitus with diabetic neuropathy, unspecified; I10 Essential (primary) hypertension; E78.5 Hyperlipidemia, unspecified; E66.9 Obesity, unspecified; Z68.36 Body mass index [BMI] 36.0-36.9, adult

== ENCOUNTER 2018-04-03 08:40 | Outpatient (CLI) | payer MEDICARE ==
[2018-04-03] MEDS ORDERED: SILVER NITRATE TP ONE (08:47)
[2018-04-03] MEDS ORDERED: XYLOCAINE TOPICAL 4% TP ONE (08:47)
== END 2018-04-03 08:41 | disposition home or self-care (01) ==
LOC: WOUND 08:40
PROVIDERS: ATTEND Surgery
DX: E11.621 Type 2 diabetes mellitus with foot ulcer (principal); L97.513 Non-pressure chronic ulcer of other part of right foot with necrosis of muscle; E11.69 Type 2 diabetes mellitus with other specified complication; M86.8X7 Other osteomyelitis, ankle and foot; E11.51 Type 2 diabetes mellitus with diabetic peripheral angiopathy without gangrene; E11.40 Type 2 diabetes mellitus with diabetic neuropathy, unspecified; I10 Essential (primary) hypertension; E78.5 Hyperlipidemia, unspecified; E66.9 Obesity, unspecified; F17.290 Nicotine dependence, other tobacco product, uncomplicated

== ENCOUNTER 2018-04-10 08:53 | Outpatient (CLI) | payer MEDICARE ==
[2018-04-10] MEDS ORDERED: XYLOCAINE TOPICAL 4% TP ONE (09:03)
[2018-04-10] MEDS ORDERED: SILVER NITRATE TP ONE (09:03)
== END 2018-04-10 08:54 | disposition home or self-care (01) ==
LOC: WOUND 08:53
PROVIDERS: ATTEND Surgery
DX: E11.621 Type 2 diabetes mellitus with foot ulcer (principal); L97.513 Non-pressure chronic ulcer of other part of right foot with necrosis of muscle; E11.69 Type 2 diabetes mellitus with other specified complication; M86.8X7 Other osteomyelitis, ankle and foot; E11.51 Type 2 diabetes mellitus with diabetic peripheral angiopathy without gangrene; E11.40 Type 2 diabetes mellitus with diabetic neuropathy, unspecified; I10 Essential (primary) hypertension; E78.5 Hyperlipidemia, unspecified; E66.9 Obesity, unspecified; F17.290 Nicotine dependence, other tobacco product, uncomplicated; Z68.36 Body mass index [BMI] 36.0-36.9, adult
CPT/HCPCS: 97605

== ENCOUNTER 2019-04-16 17:30 | Emergency (ER) | payer MEDICARE ==
[2019-04-16 19:02] LABS: Hematocrit 38.2 % (30.3-42.9); Hemoglobin 12.5 gm/dl (10.1-14.3); Mean Corpuscular HGB Conc 33 % (30-34); Mean Corpuscular Volume 77 fl (79-97); Platelet Count 369 K/mm3 (140-440); Red Blood Count 4.98 M/mm3 (3.65-5.03); Red Cell Distribution Width 17.8 % (13.2-15.2)
[2019-04-16 19:15] LABS: INR 0.93 (0.87-1.13)
[2019-04-16 19:16] LABS: Partial Thromboplastin Time 29.1 Sec. (24.2-36.6)
[2019-04-16 19:21] LABS: BUN/Creatinine Ratio 9; Blood Urea Nitrogen 6 mg/dL (7-17); Calcium 8.9 mg/dL (8.4-10.2); Hemolysis Index 4
[2019-04-16] MEDS ORDERED: LORazepam 2 MG/ML VIAL IV ONE (23:24)
--- NOTE | 2019-04-16 23:45 | Emergency Department Report ---
ED Extremity Problem HPI - General Chief complaint: Extremity Problem,Nontraumatic Stated complaint: SENT BY FOR BLOOD CLOT Time Seen by Provider: 04/16/19 22:55 Source: patient Mode of arrival: Ambulatory Limitations: No Limitations - History of Present Illness Initial comments: 58-year-old female with history of hypertension, diabetes, peripheral vascular disease, anxiety, presents to ED with right lower leg pain and swelling 3 days. Patient states her doctor has sent her for an ultrasound. Patient has ultrasound report with her which states that the entire length of the superficial femoral vein is suspicious for acute versus chronic deep vein thrombosis. Patient reports associated shortness of breath, denies fever. She reports history of previous vascular bypass surgery and stent placement 1 year ago. MD Complaint: extremity pain, extremity swelling -: days(s) (3) Location: right, lower extremity History of Same: No Quality: aching Consistency: constant Improves with: nothing Worsens with: walking Associated Symptoms: shortness of breath. denies: chest pain - Related Data Home Medications Medication Instructions Recorded Confirmed Last Taken Gabapentin [Neurontin] 400 mg PO TID 08/24/13 02/17/18 05/31/14 Lisinopril [Zestril] 1 tab PO DAILY 08/24/13 02/17/18 05/31/14 Albuterol Sulfate [Albuterol 0.63% 3 ml INHALATION PRN PRN 05/26/14 02/17/18 Unknown NEBS] Cyclobenzaprine [Flexeril 10 MG 5 mg PO TID 05/26/14 02/17/18 05/31/14 TAB] Insulin Detemir (Nf) [Levemir 64 units SC QHS 05/26/14 02/17/18 05/31/14 Flextouch (Nf)] Insulin Lispro [HumaLOG VIAL] 20 units SC TID 05/26/14 02/17/18 05/31/14 Lovastatin [Altoprev] 1 tab PO DAILY 05/26/14 02/17/18 Unknown Ranitidine HCl [Zantac 75 MG TAB] 300 mg PO DAILY 05/26/14 02/17/18 05/31/14 lisinopriL [Lisinopril] 40 mg PO DAILY 05/26/14 02/17/18 Unknown Previous Rx's Medication Instructions Recorded Last Taken Type Lidocaine [Lidoderm] 1 each TP QDAY #5 adh..patch 12/09/17 Unknown Rx Gabapentin [Neurontin] 600 mg PO Q8H #90 tablet 12/16/17 Unknown Rx Acetaminophen [Acetaminophen TAB] 650 mg PO Q4H PRN #15 tablet 02/21/18 Unknown Rx Ertapenem [INVanz] 1 gm IV Q24HR #1 vial 02/21/18 Unknown Rx Famotidine [Pepcid] 40 mg PO QDAY #15 tablet 02/21/18 Unknown Rx Loratadine (Nf) [Claritin (Nf)] 10 mg PO QDAY #30 tablet 02/21/18 Unknown Rx Nicotine [Habitrol] 21 mg TD QDAY #14 patch 02/21/18 Unknown Rx traMADoL [Ultram 50 MG tab] 50 mg PO Q6HR PRN #12 tablet 03/07/18 Unknown Rx Ibuprofen [Motrin] 600 mg PO Q8H PRN #20 tablet 03/13/18 Unknown Rx Apixaban [Eliquis] 5 mg PO BID 30 Days #70 tablet 04/17/19 Unknown Rx HYDROcodone/APAP 5-325 [Kennard 1 each PO Q6HR PRN #10 tablet 04/17/19 Unknown Rx 5/325] Allergies Allergy/AdvReac Type Severity Reaction Status Date / Time No Known Allergies Allergy Unverified 08/24/13 12:47 ED Review of Systems ROS: Stated complaint: SENT BY FOR BLOOD CLOT Other details as noted in HPI Comment: All other systems reviewed and negative Constitutional: denies: chills, fever Respiratory: shortness of breath. denies: cough Cardiovascular: denies: chest pain Musculoskeletal: as per HPI ED Past Medical Hx - Past Medical History Previous Medical History?: Yes Hx Hypertension: Yes Hx Heart Attack/AMI: (increased cholesterol) Hx Congestive Heart Failure: No Hx Diabetes: Yes Hx Liver Disease: Yes (Hep B; Increased LFTs) Hx Renal Disease: No Hx Arthritis: Yes Hx Seizures: No Hx Asthma: No Hx COPD: Yes Hx HIV: No Additional medical history: high chol,fibromyalgia,carpel tunnel,vascular occlusions BLL, Neuropathy - Surgical History Past Surgical History?: Yes Hx Appendectomy: No Additional Surgical History: sx R leg, stent placed in R leg-done at [facility] [place] - Social History Smoking Status: Never Smoker Substance Use Type: None - Medications Home Medications: Home Medications Medication Instructions Recorded Confirmed Last Taken Type Gabapentin [Neurontin] 400 mg PO TID 08/24/13 02/17/18 05/31/14 History Lisinopril [Zestril] 1 tab PO DAILY 08/24/13 02/17/18 05/31/14 History Albuterol Sulfate [Albuterol 0.63% 3 ml INHALATION PRN PRN 05/26/14 02/17/18 Unknown History NEBS] Cyclobenzaprine [Flexeril 10 MG 5 mg PO TID 05/26/14 02/17/18 05/31/14 History TAB] Insulin Detemir (Nf) [Levemir 64 units SC QHS 05/26/14 02/17/18 05/31/14 History Flextouch (Nf)] Insulin Lispro [HumaLOG VIAL] 20 units SC TID 05/26/14 02/17/18 05/31/14 History Lovastatin [Altoprev] 1 tab PO DAILY 05/26/14 02/17/18 Unknown History Ranitidine HCl [Zantac 75 MG TAB] 300 mg PO DAILY 05/26/14 02/17/18 05/31/14 History lisinopriL [Lisinopril] 40 mg PO DAILY 05/26/14 02/17/18 Unknown History Lidocaine [Lidoderm] 1 each TP QDAY #5 adh..patch 12/09/17 02/17/18 Unknown Rx Gabapentin [Neurontin] 600 mg PO Q8H #90 tablet 12/16/17 02/17/18 Unknown Rx Acetaminophen [Acetaminophen TAB] 650 mg PO Q4H PRN #15 tablet 02/21/18 Unknown Rx Ertapenem [INVanz] 1 gm IV Q24HR #1 vial 02/21/18 Unknown Rx Famotidine [Pepcid] 40 mg PO QDAY #15 tablet 02/21/18 Unknown Rx Loratadine (Nf) [Claritin (Nf)] 10 mg PO QDAY #30 tablet 02/21/18 Unknown Rx Nicotine [Habitrol] 21 mg TD QDAY #14 patch 02/21/18 Unknown Rx traMADoL [Ultram 50 MG tab] 50 mg PO Q6HR PRN #12 tablet 03/07/18 Unknown Rx Ibuprofen [Motrin] 600 mg PO Q8H PRN #20 tablet 03/13/18 Unknown Rx Apixaban [Eliquis] 5 mg PO BID 30 Days #70 tablet 04/17/19 Unknown Rx HYDROcodone/APAP 5-325 [Kennard 1 each PO Q6HR PRN #10 tablet 04/17/19 Unknown Rx 5/325] ED Physical Exam - General Limitations: No Limitations General appearance: alert, in no apparent distress - Head Head exam: Present: atraumatic, normocephalic - Eye Eye exam: Present: normal appearance, EOMI - ENT ENT exam: Present: mucous membranes moist - Neck Neck exam: Present: normal inspection - Respiratory Respiratory exam: Present: normal lung sounds bilaterally. Absent: respiratory distress - Cardiovascular Cardiovascular Exam: Present: regular rate, normal rhythm - GI/Abdominal GI/Abdominal exam: Present: soft. Absent: distended, tenderness - Extremities Exam Extremities exam: Present: calf tenderness (located on the right leg), other (right lower leg swelling present) - Neurological Exam Neurological exam: Present: alert, oriented X3 - Psychiatric Psychiatric exam: Present: normal affect, normal mood - Skin Skin exam: Present: warm, dry, intact, normal color ED Course Vital Signs 04/16/19 04/16/19 04/16/19 18:07 23:16 23:30 Temperature 98.3 F Pulse Rate 101 H 97 H Respiratory 18 18 20 Rate Blood Pressure 152/87 196/73 O2 Sat by Pulse 95 98 99 Oximetry 04/16/19 04/17/19 04/17/19 23:38 00:46 01:00 Temperature Pulse Rate 96 H 100 H Respiratory 13 12 19 Rate Blood Pressure 194/73 198/90 189/79 O2 Sat by Pulse 100 99 Oximetry 04/17/19 01:30 Temperature Pulse Rate 108 H Respiratory 19 Rate Blood Pressure 198/90 O2 Sat by Pulse 87 Oximetry ED Medical Decision Making - Lab Data Result diagrams: 04/16/19 18:51 04/16/19 18:51 - Radiology Data Radiology results: report reviewed, image reviewed - Medical Decision Making [facility] US report: "Impression: Abnormal finding involving the lower common femoral vein, entire length of the superficial femoral vein suspicious for acute versus chronic deep vein thrombosis. Recommend clinical correlation." 58 yo F w/ right lower extremity DVT found on outpt US. CTA Chest negative for PE. Pt given first dose of Eliquis here in ED. Prescriptions also given. Outpt f/u w/ vascular advised. Info given. Return precautions given. - Differential Diagnosis DVT, PE Critical care attestation.: If time is entered above; I have spent that time in minutes in the direct care of this critically ill patient, excluding procedure time. ED Disposition Clinical Impression: Deep vein thrombosis (DVT) Disposition: TO HOME OR SELFCARE Is pt being admited?: No Condition: Stable Instructions: Deep Venous Thrombosis (ED) Prescriptions: Apixaban [Eliquis] 5 mg PO BID 30 Days #70 tablet HYDROcodone/APAP 5-325 [Kennard 5/325] 1 each PO Q6HR PRN #10 tablet PRN Reason: Pain Referrals: CAL BOUCHER III, IN[facility] [employer]ICING [facility]OC[facility]ATE-BC [Primary Care Provider] - 3-5 Days ABHIJIT MCKEON MD [Staff Physician] - 3-5 Days RIOS CHENG MD [Staff Physician] - 3-5 Days Time of Disposition: 01:25
--- NOTE | 2019-04-16 23:52 | XRay Report ---
CHEST 1 VIEW INDICATION: sob. COMPARISON: None FINDINGS: Support devices: None. Heart: Mild cardiomegaly. Lungs/Pleura: No acute air space or interstitial disease. Additional findings: None. IMPRESSION: 1. No acute findings. Signer Name: Vick Melissa MD Signed: 04/16/2019 11:47 PM Workstation Name: [id number]
--- NOTE | 2019-04-17 00:48 | Cat Scan Report ---
CTA chest with contrast INDICATION : P.E. PROTOCOL!! Pt complains of S.O.B., diagnosed w/ DVT today.. TECHNIQUE: Axial imaging performed through the chest, with contrast bolus timing set to maximize opa cification of the pulmonary arteries. 3-plane MIP reformatted images were obtained. All CT scans at this location are performed using CT dose reduction for ALARA by means of automated exposure control. 100 mL of intravenous contrast administered. COMPARISON: None FINDINGS: Bolus: Contrast bolus timing is adequate. PTE: No filling defect is present to suggest PTE. Mediastinum: Heart and great vessels appear normal. No pathologic mediastinal adenopathy. Lungs: Lungs are clear. Upper abdomen: Limited imaging of the upper abdomen shows nothing acute. There is hepatic steatosis . Bones: Degenerative changes in the spine with nothing acute. IMPRESSION: Negative for PTE. Clear lungs. Signer Name: Vick Melissa MD Signed: 04/17/2019 12:44 AM Workstation Name: [id number]
[2019-04-17] MEDS ORDERED: APIXABAN 5 MG TAB PO ONE (01:16)
[2019-04-17] MEDS ORDERED: MORPHINE 2 MG/1 ML INJ IV ONE (01:17)
[2019-04-17 01:40] VITALS: BP 198/90
== END 2019-04-17 01:48 | disposition home or self-care (01) ==
LOC: ED 17:30
DX: I82.4Z1 Acute embolism and thrombosis of unspecified deep veins of right distal lower extremity (principal); I10 Essential (primary) hypertension; E11.9 Type 2 diabetes mellitus without complications; I25.2 Old myocardial infarction; M19.90 Unspecified osteoarthritis, unspecified site; J44.1 Chronic obstructive pulmonary disease with (acute) exacerbation; E78.00 Pure hypercholesterolemia, unspecified; E11.40 Type 2 diabetes mellitus with diabetic neuropathy, unspecified; Z98.890 Other specified postprocedural states; Z79.899 Other long term (current) drug therapy; Z79.4 Long term (current) use of insulin
CPT/HCPCS: 36415; 71045; 71275; 80048; 85027; 85610; 85730; 96374; 96375; 99284; J2060; J2270; Q9967